=== PATIENT | female | born 1995 | race Caucasian/White ===

== ENCOUNTER 2018-08-18 12:47 | Emergency (ER) | payer MEDICAID ==
[~2018-08-18] VITALS: Ht 154.9 cm; Wt 73.5 kg
[2018-08-18 12:59] VITALS: BP 122/77
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
[2018-08-18] MEDS ORDERED: MORPHINE SULFATE 4 MG/ML SYR IM ONE (13:30)
[2018-08-18] MEDS ORDERED: KETOROLAC 60 MG/2 ML VIAL IM ONE (13:30)
--- NOTE | 2018-08-18 13:35 | NUR ---
DR PENA AT BEDSIDE.
[2018-08-18 14:08] VITALS: BP 122/77
--- NOTE | 2018-08-18 14:08 | NUR ---
Patient discharged with v/s stable. Written and verbal after care instructions given and explained. Patient alert, oriented and verbalized understanding of instructions and follow up care. Ambulatory with steady gait. All questions addressed prior to discharge. ID band removed. Patient advised to follow up with PMD. Rx of NAPROSYN, TRAMADOL given. Patient educated on indication of medication including possible reaction and side effects. Opportunity to ask questions provided and answered.
== END 2018-08-18 14:08 | disposition home or self-care (01) ==
LOC: MED 12:47
DX: S42.032A Displaced fracture of lateral end of left clavicle, initial encounter for closed fracture (principal); S43.102A Unspecified dislocation of left acromioclavicular joint, initial encounter; Y04.0XXA Assault by unarmed brawl or fight, initial encounter; Y93.89 Activity, other specified; Y92.89 Other specified places as the place of occurrence of the external cause; Y99.8 Other external cause status
CPT/HCPCS: 29105; 73030; 96372; 99283; J2270